=== PATIENT | female | born 1960 | race Caucasian/White ===

== ENCOUNTER → 2017-02-18 | Outpatient (CLI) | payer OTHER ==
--- NOTE | 2017-02-18 11:13 | US ---
EXAMINATION: Right upper quadrant ultrasound HISTORY: Hepatitis C COMPARISON: None TECHNIQUE: Grayscale and color Doppler images obtained. FINDINGS: Pancreas is not well visualized. Liver is coarse in echotexture with a nodular contour. No focal hepatic mass identified. There is a moderate amount of abdominal ascites. The gallbladder wal l thickness is normal. No pericholecystic fluid or shadowing gallstones. Common bile duct measures 3 mm. Right kidney measures 10.5 cm [id number] without evidence of hydronephrosis. IMPRESSION: 1. Coarse nodular liver consistent with cirrhosis. 2. Moderate abdominal ascites.
== END ==
LOC: MW.US 09:49
PROVIDERS: ATTEND Internal Medicine Gastroenterology
DX: B19.20 Unspecified viral hepatitis C without hepatic coma (principal); K71.7 Toxic liver disease with fibrosis and cirrhosis of liver; R18.8 Other ascites
CPT/HCPCS: 76705; 76705-26

== ENCOUNTER → 2017-02-28 | Outpatient (CLI) | payer OTHER ==
--- NOTE | 2017-02-28 14:21 | US ---
EXAMINATION: Limited abdominal ultrasound HISTORY: Ascites, patient was here for a paracentesis. COMPARISON: 02/18/2017 TECHNIQUE: Grayscale images obtained of the abdomen. FINDINGS: There is no significant ascitic fluid noted on today's examination. Images were obtained i n all 4 quadrants. No abnormalities otherwise demonstrated. IMPRESSION: No significant ascites identified on today's examination. Paracentesis was not performed .
== END ==
LOC: MW.US 11:09
PROVIDERS: ATTEND Family Medicine
DX: R18.8 Other ascites (principal)
CPT/HCPCS: 76705; 76705-26

== ENCOUNTER 2018-01-08 10:44 | Emergency (ER) | payer OTHER ==
[2018-01-08] MEDS ORDERED: Ketorolac 60 MG/2 ML SDV IM ONE (11:36)
[2018-01-08] MEDS ORDERED: Cyclobenzaprine 10 MG Tab PO ONE (11:36)
--- NOTE | 2018-01-08 11:37 | EDM.PDOC ---
ED HPI GENERAL MEDICAL PROBLEM - General Chief Complaint: Back Pain or Injury Stated Complaint: UNABLE TO STAND NOR WALK Time Seen by Provider: 01/08/18 10:55 Source of Information: Reports: Patient History Limitations: Reports: No Limitations - History of Present Illness INITIAL COMMENTS - FREE TEXT/NARRATIVE: History of present illness: []Patient twisted her right back approximately a week and half ago while trying to help her walk. She went to go see a chiropractor but slipped on the ice in the parking lot and was unable to be seen. She was assisted by ambulance at that time but refused to be transported to the emergency room. She has been at home for 5 days dealing with the pain. Patient came into the ED today with the assistance of her and was able to walk from the wheelchair to the bed. Patient denies any numbness or chilling. Review of systems: As per history of present illness and below otherwise all systems reviewed and negative. Past medical history: As per history of present illness and as reviewed below otherwise noncontributory. Surgical history: As per history of present illness and as reviewed below otherwise noncontributory. Social history: No reported history of drug or alcohol abuse. Family history: As per history of present illness and as reviewed below otherwise noncontributory. Physical exam: General: Well developed, well nourished in NAD HEENT: Atraumatic, normocephalic, pupils reactive, negative for conjunctival pallor or scleral icterus, mucous membranes moist, throat clear, neck supple, nontender, trachea midline. Lungs: Clear to auscultation, breath sounds equal bilaterally, chest nontender. Heart: S1S2, regular, negative for clicks, rubs, or JVD. Abdomen: Soft, nondistended, nontender. Negative for masses or hepatosplenomegaly. Negative for costovertebral tenderness. Pelvis: Stable nontender. Genitourinary: Deferred. Rectal: Deferred. Extremities: Atraumatic, negative for cords or calf pain. Neurovascular unremarkable. Neuro: Awake, alert, oriented. Cranial nerves II through XII unremarkable. Cerebellum unremarkable. Motor and sensory unremarkable throughout. Exam nonfocal. Diagnostics: []X-ray showing compression fractures of L1, L2 and T9 unknown age Therapeutics: []Toradol Flexeril given the ED Impression: []Musculoskeletal pain Compression fractures L1 and L2 likely old and not in the area of her current pain Plan: []Tramadol and Flexeril for pain follow-up PMD requests physical therapy ice back is much as possible.. Definitive disposition and diagnosis as appropriate pending reevaluation and review of above. Lower Back Pain Score (Numeric/FACES): 10 - Related Data Allergies Allergy/AdvReac Type Severity Reaction Status Date / Time hydrocodone Allergy Itching Verified 01/12/17 12:41 Home Meds: Home Meds Amitriptyline [Elavil] 1 tab PO DAILY 01/12/17 [History] Amoxicillin 875 mg PO BID #14 tablet 01/12/17 [Rx] Eszopiclone 1 tab PO DAILY 01/12/17 [History] Folic Acid 1 tab PO DAILY 01/12/17 [History] Furosemide 1 tab PO DAILY 01/12/17 [History] Lactulose [Chronulac] 1 dose PO TID 01/12/17 [History] Omeprazole 1 cap PO DAILY 01/12/17 [History] Orphenadrine [Norflex] 1 tab PO BID 01/12/17 [History] Potassium Chloride 1 tab PO DAILY 01/12/17 [History] Rifaximin [Xifaxan] 1 tab PO BID 01/12/17 [History] Spironolactone [Aldactone] 1 tab PO DAILY 01/12/17 [History] hydrOXYzine HCl [Atarax] 1 tab PO DAILY 01/12/17 [History] Cyclobenzaprine [Flexeril] 10 mg PO BID PRN #16 tab 01/08/18 [Rx] traMADol HCl [Tramadol HCl] 50 mg PO Q6H PRN #16 tablet 01/08/18 [Rx] Past Medical History HEENT History: Reports: Other (See Below) Other HEENT History: laser surgery with implants both eyes for decreased vision Cardiovascular History: Reports: Other (See Below) Other Cardiovascular History: takes lasix for fluid retention due to cirrhosis 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 Immunologic History: Reports: Other (See Below) Other Immunologic History: hepatitis C - Infectious Disease History Infectious Disease History: Reports: Hepatitis C - Past Surgical History Musculoskeletal Surgical History: Reports: Other (See Below) Social & Family History - Family History Family Medical History: Noncontributory - Tobacco Use Smoking Status *Q: Current Every Day Smoker Years of Tobacco use: 20 Packs/Tins Daily: 0.5 Used Tobacco, but Quit: No Second Hand Smoke Exposure: Yes - Caffeine Use Caffeine Use: Reports: Coffee - Recreational Drug Use Recreational Drug Use: No ED ROS GENERAL - Review of Systems Review Of Systems: See Below (See history of present illness) ED EXAM,LOWER BACK PAIN/INJURY - Physical Exam Exam: See Below (See history of present illness) Course - Vital Signs Last Recorded V/S: Last Vital Signs Temp 97.9 F 01/08/18 11:44 Pulse 92 01/08/18 11:44 Resp 18 01/08/18 11:44 BP 90/58 L 01/08/18 11:44 Pulse Ox 93 L 01/08/18 11:44 - Orders/Labs/Meds Meds: Medications Discontinued Medications Generic Name Dose Route Start Last Admin Trade Name Freq PRN Reason Stop Dose Admin Cyclobenzaprine HCl 10 mg 01/08/18 11:36 01/08/18 11:57 Flexeril PO 01/08/18 11:37 10 mg ONETIME ONE Administration Ketorolac Tromethamine 60 mg 01/08/18 11:36 01/08/18 11:50 Toradol IM 01/08/18 11:37 60 mg ONETIME ONE Administration Tramadol HCl 50 mg 01/08/18 13:08 Ultram PO 01/08/18 13:09 ONETIME ONE Departure - Departure Time of Disposition: 13:08 Disposition: Home, Self-Care 01 Condition: Good Clinical Impression: Lumbar muscle pain - Discharge Information Prescriptions: Cyclobenzaprine [Flexeril] 10 mg PO BID PRN #16 tab PRN Reason: Pain traMADol HCl [Tramadol HCl] 50 mg PO Q6H PRN #16 tablet PRN Reason: Pain Referrals: Nikolay Holloway MD [Primary Care Provider] - Forms: ED Department Discharge Additional Instructions: The following information is given to patients seen in the emergency department who are being discharged to home. This information is to outline your options for follow-up care. We provide all patients seen in our emergency department with a follow-up referral. The need for follow-up, as well as the timing and circumstances, are variable depending upon the specifics of your emergency department visit. If you don't have a primary care physician on staff, we will provide you with a referral. We always advise you to contact your personal physician following an emergency department visit to inform them of the circumstance of the visit and for follow-up with them and/or the need for any referrals to a consulting specialist. The emergency department will also refer you to a specialist when appropriate. This referral assures that you have the opportunity for follow-up care with a specialist. All of these measure are taken in an effort to provide you with optimal care, which includes your follow-up. Under all circumstances we always encourage you to contact your private physician who remains a resource for coordinating your care. When calling for follow-up care, please make the office aware that this follow-up is from your recent emergency room visit. If for any reason you are refused follow-up, please contact the [facility] Emergency Department at and asked to speak to the emergency department charge nurse. Tramadol, ibuprofen for pain ice back is much as possible, follow-up with primary care request physical therapy. [facility] [address] [place] [id number]
--- NOTE | 2018-01-08 12:47 | CR ---
EXAMINATION: Lumbar spine HISTORY: Pain COMPARISON: None TECHNIQUE: AP and lateral views FINDINGS: The lumbar spinal alignment is grossly unremarkable. There is a mild compression deformity at L1 and a moderate compression deformity at L2. Mild retropulsion of the superior endplate at L2. M ild to moderate compression deformity also noted at T9. Osseous structures appear osteopenic. SI join ts are symmetric. Mild vascular calcifications. IMPRESSION: 1. Age-indeterminate compression deformities noted at L1 and L2. 2. Probable chronic compression deformity at T9.
[2018-01-08] MEDS ORDERED: traMADol 50 MG Tab PO ONE (13:08)
[2018-01-08 13:53] VITALS: BP 112/46
== END 2018-01-08 13:45 | disposition home or self-care (01) ==
LOC: MW.ED 10:44
DX: M54.5 Low back pain (principal); M79.1 Myalgia; M48.56XA Collapsed vertebra, not elsewhere classified, lumbar region, initial encounter for fracture; F32.9 Major depressive disorder, single episode, unspecified; F17.210 Nicotine dependence, cigarettes, uncomplicated; Z79.899 Other long term (current) drug therapy; Z88.5 Allergy status to narcotic agent
CPT/HCPCS: 72100; 96372; 99283; A9270; J1885

== ENCOUNTER 2018-05-03 19:17 | Inpatient (IN) | payer OTHER ==
[2018-05-03] MEDS ORDERED: Sodium Chloride 0.9% 1,000 ML IV ONE (19:22)
[2018-05-03] MEDS ORDERED: Ondansetron 4 MG/2 ML SDV IVPUSH ONE (19:22)
[2018-05-03] MEDS ORDERED: Ketorolac 30 MG/ML SDV IVPUSH ONE (19:22)
--- NOTE | 2018-05-03 20:29 | EDM.PDOC ---
ED HPI GENERAL MEDICAL PROBLEM - General Chief Complaint: Abdominal Pain Stated Complaint: ABDOMINAL PAIN Time Seen by Provider: 05/03/18 19:22 Source of Information: Reports: Patient History Limitations: Reports: No Limitations - History of Present Illness INITIAL COMMENTS - FREE TEXT/NARRATIVE: HISTORY AND PHYSICAL: History of present illness: Patient is a 57-year-old female who presents to the emergency room with complaints of abdominal pain, nausea, vomiting and constipation. She states she has not had a bowel movement in the last 3 days and does note a hernia, which is reducible. She has generalized abdominal pain but is worse in the right lower quadrant with palpation. Nausea and vomiting and unable to keep food or fluids down. History of Cirrhosis (Stage IV), Hepatitis C (currently in remission, had treatment), depression. She states that her last alcoholic drink was several years ago. She did have her belly tapped for fluid due to ascites approximately 4 years ago. Review of systems: As per history of present illness and below otherwise all systems reviewed and negative. Past medical history: As per history of present illness and as reviewed below otherwise noncontributory. Surgical history: As per history of present illness and as reviewed below otherwise noncontributory. Social history: No reported history of drug or alcohol abuse. Family history: As per history of present illness and as reviewed below otherwise noncontributory. Physical exam: General: Well-developed and well-nourished 57-year-old female. Alert and oriented. Nontoxic appearing and in no acute distress. HEENT: Atraumatic, normocephalic, pupils equal and reactive bilaterally, negative for conjunctival pallor, mucous membranes moist, throat clear, neck supple, nontender, trachea midline. No drooling or trismus noted. No meningeal signs Lungs: Clear to auscultation, breath sounds equal bilaterally, chest nontender. Heart: S1S2, regular rate and rhythm without overt murmur Abdomen: Soft, obese, right upper and lower quadrant tenderness without rebound( . Appears to have a small epigastric hernia, which is reducible. Negative for masses. Negative for costovertebral tenderness. Pelvis: Stable nontender. Genitourinary: Deferred. Rectal: Deferred. Skin: Jaunice appearing. Otherwise intact, warm, dry. No lesions or rashes noted. Extremities: Atraumatic, negative for cords or calf pain. Neurovascular unremarkable. Neuro: Awake, alert, oriented. Cranial nerves II through XII unremarkable. Cerebellum unremarkable. Motor and sensory unremarkable throughout. Exam nonfocal. Notes: Radiology is requesting that the CT of the abdomen without contrast as her GFR is the low 40s. Potassium 3.1; will give K-Dur. CT shows shrunken cirrhotic liver, moderate amount of intra-abdominal ascites, small right pleural effusion. No evidence of bowel obstruction. Multiple compression fractures age indeterminate. Dr Cook was consulted on this case; agreeable to keeping this patient for observation. Requesting an ultrasound of the right upper quadrant. Diagnostics: CBC, CMP, UA, amylase, lipase, CT abdomen and pelvis, RUQ ultrasound Therapeutics: Normal Saline, Toradol, Zofran, KDur Impression: Abdominal pain Hypokalemia Ascites Plan: Observation admission Definitive disposition and diagnosis as appropriate pending reevaluation and review of above. Onset: Today Location: Reports: Abdomen Abdomen Pain Score (Numeric/FACES): 10 - Related Data Allergies Allergy/AdvReac Type Severity Reaction Status Date / Time hydrocodone Allergy Itching Verified 01/12/17 12:41 Home Meds: Home Meds Amitriptyline [Elavil] 1 tab PO DAILY 01/12/17 [History] Eszopiclone 1 tab PO DAILY 01/12/17 [History] Folic Acid 1 tab PO DAILY 01/12/17 [History] Furosemide 1 tab PO DAILY 01/12/17 [History] Lactulose [Chronulac] 1 dose PO TID 01/12/17 [History] Omeprazole 1 cap PO DAILY 01/12/17 [History] Orphenadrine [Norflex] 1 tab PO BID 01/12/17 [History] Potassium Chloride 1 tab PO DAILY 01/12/17 [History] Rifaximin [Xifaxan] 1 tab PO BID 01/12/17 [History] Spironolactone [Aldactone] 1 tab PO DAILY 01/12/17 [History] hydrOXYzine HCl [Atarax] 1 tab PO DAILY 01/12/17 [History] Benzonatate 100 mg 05/03/18 [History] Past Medical History HEENT History: Reports: Other (See Below) Other HEENT History: laser surgery with implants both eyes for decreased vision Cardiovascular History: Reports: Other (See Below) Other Cardiovascular History: takes lasix for fluid retention due to cirrhosis Gastrointestinal History: 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 Immunologic History: Reports: Other (See Below) Other Immunologic History: hepatitis C - Infectious Disease History Infectious Disease History: Reports: Hepatitis C - Past Surgical History Musculoskeletal Surgical History: Reports: Other (See Below) Social & Family History - Family History Family Medical History: Noncontributory - Tobacco Use Smoking Status *Q: Former Smoker Used Tobacco, but Quit: Yes Month/Year Tobacco Last Used: 03/2017 - Caffeine Use Caffeine Use: Reports: Soda, Tea - Recreational Drug Use Recreational Drug Use: No ED ROS GENERAL - Review of Systems Review Of Systems: ROS reveals no pertinent complaints other than HPI. ED EXAM, GI/ABD - Physical Exam Exam: See Below (See dictation) Course - Vital Signs Last Recorded V/S: Last Vital Signs Temp 98.2 F 05/03/18 19:29 Pulse 80 05/03/18 21:10 Resp 18 05/03/18 19:29 BP 124/56 L 05/03/18 21:10 Pulse Ox 97 05/03/18 21:02 - Orders/Labs/Meds Orders: Active Orders 24 hr Category Date Time Status Admission Status [Patient Status] [ADT] Stat ADT 05/03/18 21:21 Ordered Abdomen Ltd [US] Stat Exams 05/03/18 21:21 Ordered Abdomen Pelvis wo Cont [CT] Stat Exams 05/03/18 19:22 Taken INR,PT,PROTHROMBIN TIME [COAG] Stat Lab 05/03/18 21:21 Ordered UA W/MICROSCOPIC [URIN] Stat Lab 05/03/18 19:22 Ordered Labs: Laboratory Tests 05/03/18 05/03/18 Range/Units 19:31 19:31 WBC 8.72 (4.0-11.0) K/uL RBC 3.72 L (4.30-5.90) M/uL Hgb 12.9 (12.0-16.0) g/dL Hct 37.6 (36.0-46.0) % MCV 101.1 H (80.0-98.0) fL MCH 34.7 H (27.0-32.0) pg MCHC 34.3 (31.0-37.0) g/dL RDW Std Deviation 60.0 (28.0-62.0) fl RDW Coeff of Shin 16 H (11.0-15.0) % Plt Count 91 L (150-400) K/uL MPV 9.60 (7.40-12.00) fL Neut % (Auto) 46.4 L (48.0-80.0) % Lymph % (Auto) 32.2 (16.0-40.0) % [place] % (Auto) 12.4 (0.0-15.0) % Eos % (Auto) 7.9 H (0.0-7.0) % Baso % (Auto) 1.1 (0.0-1.5) % Neut # (Auto) 4.0 (1.4-5.7) K/uL Lymph # (Auto) 2.8 H (0.6-2.4) K/uL [place] # (Auto) 1.1 H (0.0-0.8) K/uL Eos # (Auto) 0.7 (0.0-0.7) K/uL Baso # (Auto) 0.1 (0.0-0.1) K/uL Nucleated RBC % 0.0 /100WBC Nucleated RBCs # 0 K/uL Sodium 139 (136-145) mmol/L Potassium 3.1 L (3.5-5.1) mmol/L Chloride 105 (98-107) mmol/L Carbon Dioxide 27.8 (21.0-32.0) mmol/L BUN 13 (7.0-18.0) mg/dL Creatinine 1.3 H (0.6-1.0) mg/dL Est Cr Clr Drug Dosing 49.90 mL/min Estimated GFR (MDRD) 42.2 ml/min Glucose 75 (74-106) mg/dL Calcium 8.4 L (8.5-10.1) mg/dL Total Bilirubin 6.2 H (0.2-1.0) mg/dL AST 73 H (15-37) IU/L ALT 37 (14-63) IU/L Alkaline Phosphatase 169 H (46-116) U/L Total Protein 6.5 (6.4-8.2) g/dL Albumin 2.5 L (3.4-5.0) g/dL Globulin 4.0 H (2.0-3.5) g/dL Albumin/Globulin Ratio 0.6 L (1.3-2.8) Amylase 32 (25-115) U/L Lipase 110 (73-393) U/L Meds: Medications Discontinued Medications Generic Name Dose Route Start Last Admin Trade Name Julita PRN Reason Stop Dose Admin Sodium Chloride 1,000 mls @ 999 mls/hr 05/03/18 19:22 05/03/18 19:28 Normal Saline IV 05/03/18 20:22 999 mls/hr STAT ONE Administration Ketorolac Tromethamine 30 mg 05/03/18 19:22 05/03/18 19:28 Toradol IVPUSH 05/03/18 19:23 30 mg ONETIME ONE Administration Ondansetron HCl 4 mg 05/03/18 19:22 05/03/18 19:29 Zofran IVPUSH 05/03/18 19:23 4 mg ONETIME ONE Administration Potassium Chloride 40 meq 05/03/18 20:54 05/03/18 21:08 Klor-Con M20 PO 05/03/18 20:55 40 meq ONETIME ONE Administration Departure - Departure Time of Disposition: 21:27 Disposition: Refer to Observation Clinical Impression: Hypokalemia Ascites Qualifiers: Ascites type: due to alcoholic cirrhosis Qualified Code(s): K70.31 - Alcoholic cirrhosis of liver with ascites Abdominal pain Qualifiers: Abdominal location: right upper quadrant Qualified Code(s): R10.11 - Right upper quadrant pain - Discharge Information Referrals: PCP,None [Primary Care Provider] - Forms: ED Department Discharge - My Orders Last 24 Hours: My Active Orders 05/03/18 19:22 Abdomen Pelvis wo Cont [CT] Stat UA W/MICROSCOPIC [URIN] Stat 05/03/18 21:21 Admission Status [Patient Status] [ADT] Stat Abdomen Ltd [US] Stat INR,PT,PROTHROMBIN TIME [COAG] Stat - Assessment/Plan Last 24 Hours: My Active Orders 05/03/18 19:22 Abdomen Pelvis wo Cont [CT] Stat UA W/MICROSCOPIC [URIN] Stat 05/03/18 21:21 Admission Status [Patient Status] [ADT] Stat Abdomen Ltd [US] Stat INR,PT,PROTHROMBIN TIME [COAG] Stat
[2018-05-03] MEDS ORDERED: Potassium Chloride 20 MEQ Tab.ER PO ONE (20:54)
[2018-05-04] MEDS ORDERED: Ondansetron 4 MG/2 ML SDV IVPUSH PRN (00:12)
[2018-05-04] MEDS ORDERED: Lactulose Soln 10 GM/15 ML 15 ML UD Cup PO SCH ×3 (00:15→14:00)
[2018-05-04] MEDS: Lactulose Soln 10 GM/15 ML 15 ML UD Cup PO SCH ×5 (01:16→18:40)
[2018-05-04] MEDS: Omeprazole 20 MG Cap.CR PO SCH (06:40)
[2018-05-04] MEDS: traMADol 50 MG Tab PO PRN ×2 (06:43→13:31)
--- NOTE | 2018-05-04 08:45 | PCM.HP ---
H&P History of Present Illness - General Date of Service: 05/04/18 Admit Problem/Dx: Admission Diagnosis/Problem Admission Diagnosis/Problem Ascites History Limitations: Reports: Altered Mental Status - History of Present Illness Initial Comments - Free Text/Narative: 57 yo fm with history of Liver Cirrhosis and HCV apparently in remission is admitted for Hepatic Encephalopathy, Subacute Kidney Injury and Hypokalemia. Due to her altered mental status patient is unable to provide any history. Abdomen Pain Score (Numeric/FACES): 7 - Related Data Allergies/Adverse Reactions: Allergies Allergy/AdvReac Type Severity Reaction Status Date / Time hydrocodone Allergy Itching Verified 01/12/17 12:41 Home Medications: Home Meds Amitriptyline [Elavil] 1 tab PO DAILY 01/12/17 [History] Eszopiclone 1 tab PO DAILY 01/12/17 [History] Folic Acid 1 tab PO DAILY 01/12/17 [History] Furosemide 1 tab PO DAILY 01/12/17 [History] Lactulose [Chronulac] 1 dose PO TID 01/12/17 [History] Omeprazole 1 cap PO DAILY 01/12/17 [History] Orphenadrine [Norflex] 1 tab PO BID 01/12/17 [History] Potassium Chloride 1 tab PO DAILY 01/12/17 [History] Rifaximin [Xifaxan] 1 tab PO BID 01/12/17 [History] Spironolactone [Aldactone] 1 tab PO DAILY 01/12/17 [History] hydrOXYzine HCl [Atarax] 1 tab PO DAILY 01/12/17 [History] Benzonatate 100 mg 05/03/18 [History] Albuterol [Ventolin HFA] 90 mcg INH Q4HR PRN 05/04/18 [History] Past Medical History HEENT History: Reports: Other (See Below) Other HEENT History: laser surgery with implants both eyes for decreased vision Cardiovascular History: Reports: Other (See Below) Other Cardiovascular History: takes lasix for fluid retention due to cirrhosis Respiratory History: Reports: None Gastrointestinal History: Reports: Cirrhosis, Hepatitis, Jaundice Genitourinary History: Reports: None 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 Hematologic History: Reports: Folic Acid Immunologic History: Reports: Other (See Below) Other Immunologic History: hepatitis C Oncologic (Cancer) History: Reports: None Dermatologic History: Reports: None - Infectious Disease History Infectious Disease History: Reports: Hepatitis C - Past Surgical History GI Surgical History: Reports: Abdominal paracentesis Neurological Surgical History: Reports: None Musculoskeletal Surgical History: Reports: Other (See Below) Other Musculoskeletal Surgeries/Procedures:: titanium on left shoulder Social & Family History - Family History Family Medical History: Noncontributory - Tobacco Use Smoking Status *Q: Former Smoker Used Tobacco, but Quit: Yes Month/Year Tobacco Last Used: 03/2018 Second Hand Smoke Exposure: No - Caffeine Use Caffeine Use: Reports: None - Recreational Drug Use Recreational Drug Use: No H&P Review of Systems - Review of Systems: Review Of Systems: Unable To Obtain Exam - Exam Exam: See Below - Vital Signs Vital Signs: Last Vital Signs Temp 36.5 C 05/04/18 03:59 Pulse 88 05/04/18 03:59 Resp 18 05/04/18 03:59 BP 126/76 05/04/18 03:59 Pulse Ox 95 05/04/18 03:59 Weight: 98.5 kg - Exam General: No: Alert, Oriented HEENT: Scleral Icterus Neck: Supple Lungs: Clear to Auscultation, Normal Respiratory Effort Cardiovascular: Regular Rate, Regular Rhythm GI/Abdominal Exam: Distended, Tender, Hernia Extremities: Other (BL asterixis ) Neuro Extensive - Mental Status: Disorientation to Person, Inattentive. No: Normal Cognition - Patient Data Lab Results Last 24 hrs: Laboratory Results - last 24 hr 05/03/18 05/03/18 05/03/18 Range/Units 19:31 19:31 19:31 WBC 8.72 (4.0-11.0) K/uL RBC 3.72 L (4.30-5.90) M/uL Hgb 12.9 (12.0-16.0) g/dL Hct 37.6 (36.0-46.0) % MCV 101.1 H (80.0-98.0) fL MCH 34.7 H (27.0-32.0) pg MCHC 34.3 (31.0-37.0) g/dL RDW Std Deviation 60.0 (28.0-62.0) fl RDW Coeff of Shin 16 H (11.0-15.0) % Plt Count 91 L (150-400) K/uL MPV 9.60 (7.40-12.00) fL Neut % (Auto) 46.4 L (48.0-80.0) % Lymph % (Auto) 32.2 (16.0-40.0) % Rincon % (Auto) 12.4 (0.0-15.0) % Eos % (Auto) 7.9 H (0.0-7.0) % Baso % (Auto) 1.1 (0.0-1.5) % Neut # (Auto) 4.0 (1.4-5.7) K/uL Lymph # (Auto) 2.8 H (0.6-2.4) K/uL Rincon # (Auto) 1.1 H (0.0-0.8) K/uL Eos # (Auto) 0.7 (0.0-0.7) K/uL Baso # (Auto) 0.1 (0.0-0.1) K/uL Nucleated RBC % 0.0 /100WBC Nucleated RBCs # 0 K/uL INR 2.01 Sodium 139 (136-145) mmol/L Potassium 3.1 L (3.5-5.1) mmol/L Chloride 105 (98-107) mmol/L Carbon Dioxide 27.8 (21.0-32.0) mmol/L BUN 13 (7.0-18.0) mg/dL Creatinine 1.3 H (0.6-1.0) mg/dL Est Cr Clr Drug Dosing 49.90 mL/min Estimated GFR (MDRD) 42.2 ml/min Glucose 75 (74-106) mg/dL Calcium 8.4 L (8.5-10.1) mg/dL Total Bilirubin 6.2 H (0.2-1.0) mg/dL AST 73 H (15-37) IU/L ALT 37 (14-63) IU/L Alkaline Phosphatase 169 H (46-116) U/L Total Protein 6.5 (6.4-8.2) g/dL Albumin 2.5 L (3.4-5.0) g/dL Globulin 4.0 H (2.0-3.5) g/dL Albumin/Globulin Ratio 0.6 L (1.3-2.8) Amylase 32 (25-115) U/L Lipase 110 (73-393) U/L Urine Color Urine Appearance Urine pH (5.0-8.0) Ur Specific Hancock (1.001-1.035) Urine Protein (NEGATIVE) mg/dL Urine Glucose (UA) (NEGATIVE) mg/dL Urine Ketones (NEGATIVE) mg/dL Urine Occult Blood (NEGATIVE) Urine Nitrite (NEGATIVE) Urine Bilirubin (NEGATIVE) Urine Ictotest Urine Urobilinogen (<2.0) EU/dL Ur Leukocyte Esterase (NEGATIVE) Urine RBC (0-2/HPF) Urine WBC (0-5/HPF) Ur Epithelial Cells (NONE-FEW) Urine Bacteria (NEGATIVE) 05/04/18 05/04/18 05/04/18 Range/Units 05:18 05:18 05:55 WBC 8.19 (4.0-11.0) K/uL RBC 3.55 L (4.30-5.90) M/uL Hgb 12.3 (12.0-16.0) g/dL Hct 36.3 (36.0-46.0) % MCV 102.3 H (80.0-98.0) fL MCH 34.6 H (27.0-32.0) pg MCHC 33.9 (31.0-37.0) g/dL RDW Std Deviation 61.2 (28.0-62.0) fl RDW Coeff of Shin 17 H (11.0-15.0) % Plt Count 82 L (150-400) K/uL MPV 9.70 (7.40-12.00) fL Neut % (Auto) (48.0-80.0) % Lymph % (Auto) (16.0-40.0) % Rincon % (Auto) (0.0-15.0) % Eos % (Auto) (0.0-7.0) % Baso % (Auto) (0.0-1.5) % Neut # (Auto) (1.4-5.7) K/uL Lymph # (Auto) (0.6-2.4) K/uL Rincon # (Auto) (0.0-0.8) K/uL Eos # (Auto) (0.0-0.7) K/uL Baso # (Auto) (0.0-0.1) K/uL Nucleated RBC % 0.0 /100WBC Nucleated RBCs # 0 K/uL INR Sodium 142 (136-145) mmol/L Potassium 4.1 (3.5-5.1) mmol/L Chloride 108 H (98-107) mmol/L Carbon Dioxide 29.6 (21.0-32.0) mmol/L BUN 15 (7.0-18.0) mg/dL Creatinine 1.3 H (0.6-1.0) mg/dL Est Cr Clr Drug Dosing 49.90 mL/min Estimated GFR (MDRD) 42.2 ml/min Glucose 67 L (74-106) mg/dL Calcium 8.4 L (8.5-10.1) mg/dL Total Bilirubin 6.3 H (0.2-1.0) mg/dL AST 68 H (15-37) IU/L ALT 35 (14-63) IU/L Alkaline Phosphatase 151 H (46-116) U/L Total Protein 5.9 L (6.4-8.2) g/dL Albumin 2.3 L (3.4-5.0) g/dL Globulin 3.6 H (2.0-3.5) g/dL Albumin/Globulin Ratio 0.6 L (1.3-2.8) Amylase (25-115) U/L Lipase (73-393) U/L Urine Color DARK YELLOW Urine Appearance CLEAR Urine pH 6.0 (5.0-8.0) Ur Specific Hancock 1.015 (1.001-1.035) Urine Protein NEGATIVE (NEGATIVE) mg/dL Urine Glucose (UA) NEGATIVE (NEGATIVE) mg/dL Urine Ketones NEGATIVE (NEGATIVE) mg/dL Urine Occult Blood TRACE-INTACT (NEGATIVE) Urine Nitrite NEGATIVE (NEGATIVE) Urine Bilirubin SMALL H (NEGATIVE) Urine Ictotest NEGATIVE Urine Urobilinogen 2.0 H (<2.0) EU/dL Ur Leukocyte Esterase NEGATIVE (NEGATIVE) Urine RBC 0-4 (0-2/HPF) Urine WBC 0-2 (0-5/HPF) Ur Epithelial Cells RARE (NONE-FEW) Urine Bacteria RARE (NEGATIVE) Result Diagrams: 05/04/18 05:18 05/04/18 05:18 Problem List Initiated/Reviewed/Updated: Yes Orders Last 24hrs: Active Orders 24 hr Category Date Time Status Admission Status [Patient Status] [ADT] Stat ADT 05/03/18 21:21 Active Insert Urinary Catheter [OM.PC] Q24H Care 05/04/18 07:00 Ordered Oxygen Therapy [RC] PRN Care 05/03/18 23:59 Active Urinary Catheter Assessment [RC] ASDIRECTED Care 05/04/18 06:53 Active VTE/DVT Education [RC] PER UNIT ROUTINE Care 05/03/18 23:59 Active Vital Signs [RC] Q4H Care 05/03/18 23:59 Active Regular Diet [DIET] Diet 05/04/18 Breakfast Active Abdomen Ltd [US] Stat Exams 05/03/18 21:21 Taken Abdomen Pelvis wo Cont [CT] Stat Exams 05/03/18 19:22 Taken UA W/MICROSCOPIC [URIN] Stat Lab 05/04/18 05:55 Ordered Folic Acid Med 05/04/18 09:00 Active 1 mg PO DAILY Lactulose [Chronulac] Med 05/04/18 08:45 Ordered 10 gm PO Q4H Omeprazole Med 05/04/18 07:30 Active 20 mg PO ACBREAKFAST Ondansetron [Zofran] Med 05/04/18 00:12 Active 4 mg IVPUSH Q4H PRN Rifaximin Med 05/04/18 09:00 Active 1 tab PO BID Spironolactone [Aldactone] Med 05/04/18 09:00 Active 100 mg PO DAILY traMADol [Ultram] Med 05/04/18 00:11 Active 50 mg PO Q4H PRN Sequential Compression Device [OM.PC] Per Unit Routine Oth 05/03/18 23:59 Ordered Medication Orders Folic Acid (Folic Acid) 1 mg PO DAILY VINCENT Lactulose (Chronulac) 10 gm PO Q4H VINCENT Non-Formulary Medication (Rifaximin) 1 tab PO BID VINCENT Omeprazole (Omeprazole) 20 mg PO ACBREAKFAST VINCENT Last Admin: 05/04/18 06:40 Dose: 20 mg Ondansetron HCl (Zofran) 4 mg IVPUSH Q4H PRN PRN Reason: Nausea/Vomiting Spironolactone (Aldactone) 100 mg PO DAILY VINCENT Tramadol HCl (Ultram) 50 mg PO Q4H PRN PRN Reason: Pain Last Admin: 05/04/18 06:43 Dose: 50 mg Assessment/Plan Comment:: #Liver Cirrhosis, stage 4 as per records #Hx HCV, in remission as per records #Elevated INR, 2.01 #Hypoalbuminemia, 2.3 #Elevated AST, 68 #elevated Alk Phos, 151 -as per records patient with stage 4 cirrhosis and HCV in remission -CT Abdomen-pelvis reveals shrunken cirrhotic liver and moderate intra- abdominal ascites -US RUQ reveals Micronodular cirrhosis and perihepatic ascites -contacted Dr. Sheridan ID and patient has never been seen, she last saw GI Dr. Brooks May 2017, records currently unavailable Plan: -obtain HCV RNA -continue monitoring and obtain records #Hepatic Encephalopathy -likely secondary to non-adherence to treatment -as per records home meds include Rifaximin 1 tab BID & Lactulose 1 dose TID -patient currently with altered mental status, states she does not take meds at home, unclear accuracy of statements Plan: -obtain ammonia -resume Rifaximin 1 tab BID -resume Lactulose 10 mg PO Q4H, hold for over 3 bm's per day #Ascites -seen on Ct Abdomen and RUQ US -discussed with in house radiology who notes presence of enough ascites fluid to justify paracentesis for diagnostic purposes but likely no/low therapeutic benefit Plan -consult Radiology for Paracentesis to r/o SBP - Radiology states patients tap may be done today with current INR but if any delay then rec's vitamin K -peritoneal fluid analysis #Thrombocytopenia, 82K -may be secondary to splenomegaly from Liver cirrhosis -no signs/symptoms of bleeding -continue to monitor #Multiple compression fractures, age indeterminate -seen on CT -continue to monitor
[2018-05-04] MEDS: RIFAXIMIN PO SCH (09:03)
[2018-05-04] MEDS: Spironolactone 25 MG Tab PO SCH (09:05)
[2018-05-04] MEDS: Folic Acid 1 MG Tab PO SCH (09:05)
--- NOTE | 2018-05-04 15:18 | CT ---
EXAM DATE: 05/03/18 PATIENT'S AGE: 57 Patient: GE MONTESINOS Facility: [place], [place] Site . Site : 1960 Study: CT Abdomen/Pelvis W/O [id number]/3/2018 8:38:08 PM Ordering Physician: Doctor Strickland Final Report: HISTORY: Generalized abdominal pain. History of ascites. COMPARISON: None. TECHNIQUE: Axial images were obtained through the abdomen and pelvis without contrast. FINDINGS: The small right pleural effusion. Shrunken cirrhotic liver. The spleen is normal size. There is a moderate amount of intra-abdominal ascites predominantly in the right upper quadrant and in the pelvis. The gallbladder, pancreas, adrenal glands and kidneys are grossly normal without contrast administration. There is a moderate amount of formed stool. No evidence for bowel obstruction. Compression fractures involving L4, L2, and T9. There is retropulsion of fragment mildly narrowing the central canal at the level of L2 . Fractures are age-indeterminate. IMPRESSION: 1. Shrunken cirrhotic liver. 2. Moderate intra-abdominal ascites. 3. Small right pleural effusion. 4. Multiple compression fractures age indeterminate. Please note that all CT scans at this facility use dose modulation, iterative reconstruction, and/or weight-based dosing when appropriate to reduce radiation dose to as low as reasonably achievable. Dictated by Shayy Sifuentes MD @ May 03 2018 8:57PM (Electronic Signature) Report Signed by Proxy. [facility]
--- NOTE | 2018-05-04 15:30 | US ---
EXAM DATE: 05/03/18 PATIENT'S AGE: 57 Patient: GE MONTESINOS Facility: [place], [place] Site . Site : 1960 Study: US Abdomen [id number]/3/2018 10:26:23 PM Ordering Physician: Doctor Strickland Final Report: INDICATION: General abdominal pain for 2 years TECHNIQUE: Ultrasound abdomen limited. Sonographic images of the right upper quadrant were obtained using everett-scale and color Doppler images. COMPARISON: None FINDINGS: Liver: A moderate amount of perihepatic ascites and small right pleural effusion seen. The liver has a nodular capsular contour, consistent with micronodular cirrhosis. No focal liver lesions are identified. Gallbladder: The neck of the gallbladder is not well demonstrated. The gallbladder wall is normal in appearance. No pericholecystic fluid is present. No sonographic Northway sign is present. Common bile duct: 4 mm. The common bile duct is normal in appearance and size. Pancreas: Obscured by bowel gas and cannot be visualized. Right Kidney: 10.3 cm. No hydronephrosis or ureterectasis is seen. Vascular: Proximal abdominal aorta and IVC are normal in caliber. IMPRESSION: 1. A moderate amount of perihepatic ascites and small right pleural effusion seen. 2. The liver has a nodular capsular contour, consistent with micronodular cirrhosis. Dictated by Oscar Campbell MD @ 05/03/2018 10:44:36 PM Dictated by: Oscar Campbell MD @ 05/03/2018 22:45:22 (Electronic Signature) Report Signed by Proxy. IRA[place]
[2018-05-05] MEDS: RIFAXIMIN PO SCH ×3 (01:10→20:01)
[2018-05-05] MEDS: Lactulose Soln 10 GM/15 ML 15 ML UD Cup PO SCH ×7 (01:10→19:47)
[2018-05-05] MEDS: Omeprazole 20 MG Cap.CR PO SCH (06:46)
--- NOTE | 2018-05-05 08:00 | US ---
Ultrasound-guided paracentesis Medical history: Alcoholic hepatitis with cirrhosis and ascites last rule out spontaneous bacterial p eritonitis Procedure: After informed consent was obtained from the patient's patient was [facility] to [facility]. Under ultrasound guidance a pocket of fluid near the liver was located and a 4 Haitian straight catheter was inserted with aspiration of 30 cc of clear yellow fluid. No findings are present to sug gest this was purulent. Material was sent to the laboratory for requested analysis. No no complicatio n ensued Impression: Successful ultrasound-guided paracentesis for diagnosis as described
[2018-05-05] MEDS: Folic Acid 1 MG Tab PO SCH (08:26)
[2018-05-05] MEDS: Spironolactone 25 MG Tab PO SCH (08:26)
--- NOTE | 2018-05-05 08:41 | PCM.PN ---
- General Info Date of Service: 05/05/18 Admission Dx/Problem (Free Text): Admission Diagnosis/Problem Admission Diagnosis/Problem Ascites Subjective Update: Patient had one bowel movement despite scheduled lactulose. Still has fluctuating orientation and BL tremors. - Review of Systems General: Reports: Weakness. Denies: Appetite Pulmonary: Reports: No Symptoms Cardiovascular: Reports: No Symptoms Gastrointestinal: Reports: Abdominal Pain, Decreased Appetite, Nausea, Vomiting , Other Musculoskeletal: Reports: Other (BL tremor) Neurological: Reports: Trouble Speaking Systems Review Comment:: may not be accurate due to acute encephalopathy - Patient Data Vitals - Most Recent: Last Vital Signs Temp 37.1 C 05/05/18 08:00 Pulse 91 05/05/18 08:00 Resp 20 05/05/18 08:00 BP 121/62 05/05/18 08:00 Pulse Ox 92 L 05/05/18 08:00 Weight - Most Recent: 98.5 kg I&O - Last 24 Hours: Intake & Output 05/04/18 05/05/18 05/05/18 22:59 06:59 14:59 Intake Total 380 350 Output Total 0 Balance 380 350 Lab Results Last 24 Hours: Laboratory Results - last 24 hr 05/04/18 05/04/18 05/04/18 Range/Units 12:25 14:23 16:50 WBC (4.0-11.0) K/uL RBC (4.30-5.90) M/uL Hgb (12.0-16.0) g/dL Hct (36.0-46.0) % MCV (80.0-98.0) fL MCH (27.0-32.0) pg MCHC (31.0-37.0) g/dL RDW Std Deviation (28.0-62.0) fl RDW Coeff of Shin (11.0-15.0) % Plt Count (150-400) K/uL MPV (7.40-12.00) fL Add Manual Diff Neutrophils % (Manual) (48.0-80.0) % Lymphocytes % (Manual) (16.0-40.0) % Monocytes % (Manual) (0.0-15.0) % Eosinophils % (Manual) (0.0-7.0) % Basophils % (Manual) (0.0-1.5) % Nucleated RBC % /100WBC Absolute Seg Neuts (1.4-5.7) Lymphocytes # (Manual) (0.6-2.4) Monocytes # (Manual) (0.0-0.8) Eosinophils # (Manual) (0.0-0.7) Basophils # (Manual) (0.0-0.1) Nucleated RBCs # K/uL INR Sodium 140 (136-145) mmol/L Potassium 3.8 (3.5-5.1) mmol/L Chloride 106 (98-107) mmol/L Carbon Dioxide 24.9 (21.0-32.0) mmol/L BUN 14 (7.0-18.0) mg/dL Creatinine 1.3 H (0.6-1.0) mg/dL Est Cr Clr Drug Dosing 49.90 mL/min Estimated GFR (MDRD) 42.2 ml/min Glucose 112 H (74-106) mg/dL Calcium 8.3 L (8.5-10.1) mg/dL Magnesium (1.5-2.0) mg/dL Total Bilirubin 6.6 H (0.2-1.0) mg/dL AST 74 H (15-37) IU/L ALT 37 (14-63) IU/L Alkaline Phosphatase 162 H (46-116) U/L Ammonia 53 (19-54) ug/dL Lactate Dehydrogenase 362 H (81-234) U/L Total Protein 6.2 L (6.4-8.2) g/dL Albumin 2.5 L (3.4-5.0) g/dL Globulin 3.7 H (2.0-3.5) g/dL Albumin/Globulin Ratio 0.7 L (1.3-2.8) Fluid Type PER Fluid Color YELLOW Fluid Appearance CLEAR Fluid WBC 0.17 K/uL Fluid RBC 0.00 M/uL Fluid Mononuclear Cell 76.0 % Fl Polymorphonucl Cell 24.0 % Fluid Glucose 125 mg/dL Fluid Total Protein 0.2 g/dL Fluid Albumin 0.0 g/dL Fluid LDH 31 U/L Fluid Amylase 6 U/L 05/05/18 05/05/18 05/05/18 Range/Units 06:45 06:45 06:45 WBC 7.53 (4.0-11.0) K/uL RBC 3.39 L (4.30-5.90) M/uL Hgb 11.7 L (12.0-16.0) g/dL Hct 34.8 L (36.0-46.0) % MCV 102.7 H (80.0-98.0) fL MCH 34.5 H (27.0-32.0) pg MCHC 33.6 (31.0-37.0) g/dL RDW Std Deviation 62.0 (28.0-62.0) fl RDW Coeff of Shin 17 H (11.0-15.0) % Plt Count 81 L (150-400) K/uL MPV 9.30 (7.40-12.00) fL Add Manual Diff YES Neutrophils % (Manual) 68 (48.0-80.0) % Lymphocytes % (Manual) 12 L (16.0-40.0) % Monocytes % (Manual) 10 (0.0-15.0) % Eosinophils % (Manual) 9 H (0.0-7.0) % Basophils % (Manual) 1 (0.0-1.5) % Nucleated RBC % 0.0 /100WBC Absolute Seg Neuts 5.1 (1.4-5.7) Lymphocytes # (Manual) 0.9 (0.6-2.4) Monocytes # (Manual) 0.8 (0.0-0.8) Eosinophils # (Manual) 0.7 (0.0-0.7) Basophils # (Manual) 0.1 (0.0-0.1) Nucleated RBCs # 0 K/uL INR 2.04 Sodium 141 (136-145) mmol/L Potassium 3.8 (3.5-5.1) mmol/L Chloride 108 H (98-107) mmol/L Carbon Dioxide 27.2 (21.0-32.0) mmol/L BUN 12 (7.0-18.0) mg/dL Creatinine 1.2 H (0.6-1.0) mg/dL Est Cr Clr Drug Dosing 54.05 mL/min Estimated GFR (MDRD) 46.3 ml/min Glucose 78 (74-106) mg/dL Calcium 8.4 L (8.5-10.1) mg/dL Magnesium 1.7 (1.5-2.0) mg/dL Total Bilirubin 6.1 H (0.2-1.0) mg/dL AST 66 H (15-37) IU/L ALT 36 (14-63) IU/L Alkaline Phosphatase 159 H (46-116) U/L Ammonia (19-54) ug/dL Lactate Dehydrogenase (81-234) U/L Total Protein 5.9 L (6.4-8.2) g/dL Albumin 2.3 L (3.4-5.0) g/dL Globulin 3.6 H (2.0-3.5) g/dL Albumin/Globulin Ratio 0.6 L (1.3-2.8) Fluid Type Fluid Color Fluid Appearance Fluid WBC K/uL Fluid RBC M/uL Fluid Mononuclear Cell % Fl Polymorphonucl Cell % Fluid Glucose mg/dL Fluid Total Protein g/dL Fluid Albumin g/dL Fluid LDH U/L Fluid Amylase U/L Vicente Results Last 24 Hours: Microbiology 05/04/18 16:50 Gram Stain - Preliminary Peritoneal Fluid Med Orders - Current: Current Medications Folic Acid (Folic Acid) 1 mg PO DAILY [facility], [facility] Last Admin: 05/05/18 08:26 Dose: 1 mg Lactulose (Chronulac) 20 gm PO Q4H FORMERLY [facility], [facility] Non-Formulary Medication (Rifaximin) 1 tab PO BID [facility]MER[facility], [facility] Last Admin: 05/05/18 08:26 Dose: Not Given Omeprazole (Omeprazole) 20 mg PO ACBREAKFAST FOR[facility], [facility] Last Admin: 05/05/18 06:46 Dose: 20 mg Ondansetron HCl (Zofran) 4 mg IVPUSH Q4H PRN PRN Reason: Nausea/Vomiting Spironolactone (Aldactone) 100 mg PO DAILY [facility], [facility] Last Admin: 05/05/18 08:26 Dose: 100 mg Tramadol HCl (Ultram) 50 mg PO Q4H PRN PRN Reason: Pain Last Admin: 05/04/18 13:31 Dose: 50 mg Discontinued Medications Sodium Chloride (Normal Saline) 1,000 mls @ 999 mls/hr IV STAT ONE Stop: 05/03/18 20:22 Last Admin: 05/03/18 19:28 Dose: 999 mls/hr Ketorolac Tromethamine (Toradol) 30 mg IVPUSH ONETIME ONE Stop: 05/03/18 19:23 Last Admin: 05/03/18 19:28 Dose: 30 mg Lactulose (Chronulac) 10 gm PO TID VINCENT Lactulose (Chronulac) 10 gm PO DAILY [facility] Last Admin: 05/04/18 00:48 Dose: Not Given Lactulose (Chronulac) 10 gm PO TID VINCENT Last Admin: 05/04/18 06:41 Dose: 10 gm Lactulose (Chronulac) 20 gm PO TID VINCENT Lactulose (Chronulac) 10 gm PO Q4H [facility] Last Admin: 05/05/18 08:26 Dose: 10 gm Ondansetron HCl (Zofran) 4 mg IVPUSH ONETIME ONE Stop: 05/03/18 19:23 Last Admin: 05/03/18 19:29 Dose: 4 mg Potassium Chloride (Klor-Con M20) 40 meq PO ONETIME ONE Stop: 05/03/18 20:55 Last Admin: 05/03/18 21:08 Dose: 40 meq - Exam General: Alert, Other. No: Oriented (oriented to person and place but not time) HEENT: Scleral Icterus Neck: Supple Lungs: Clear to Auscultation, Normal Respiratory Effort Cardiovascular: Regular Rate, Regular Rhythm GI/Abdominal Exam: Normal Bowel Sounds, Distended, Tender, Other (umbilical hernia, reducible). No: Guarding, Rigid, Rebound Extremities: Normal Range of Motion, Non-Tender, Other (BL LE edema) Neurological: No: Normal Speech - Problem List Review Problem List Initiated/Reviewed/Updated: Yes - My Orders Last 24 Hours: My Active Orders 05/04/18 11:12 HCV RT-PCR, QUANT (NON-GRAPH) [REF] Routine 05/04/18 13:54 Code Status [Resuscitation Status] Routine 05/04/18 16:50 ALBUMIN,BODY FLUID [BF] Routine AMYLASE,BODY FLUID [BF] Routine ANAEROBIC CULTURE [MREF] Routine BODY FLUID, TOTAL BILIRUBIN Routine CELL COUNT,BODY FLUID [BF] Routine CULTURE BODY FLUID + SMEAR [RM] Routine GLUCOSE,BODY FLUID [BF] Routine LACTATE DEHYDROGENASE,BODY FL [BF] Routine PROTEIN,BODY FLUID [BF] Routine 05/05/18 08:38 CULTURE URINE [RM] Routine 05/05/18 08:40 Lactulose [Chronulac] 20 gm PO Q4H 05/06/18 05:11 CBC WITH AUTO DIFF [HEME] AM COMPREHENSIVE METABOLIC PN,CMP [CHEM] AM INR,PT,PROTHROMBIN TIME [COAG] AM 05/07/18 05:11 CBC WITH AUTO DIFF [HEME] AM COMPREHENSIVE METABOLIC PN,CMP [CHEM] AM INR,PT,PROTHROMBIN TIME [COAG] AM 05/08/18 05:11 CBC WITH AUTO DIFF [HEME] AM COMPREHENSIVE METABOLIC PN,CMP [CHEM] AM INR,PT,PROTHROMBIN TIME [COAG] AM 05/09/18 05:11 CBC WITH AUTO DIFF [HEME] AM COMPREHENSIVE METABOLIC PN,CMP [CHEM] AM INR,PT,PROTHROMBIN TIME [COAG] AM 05/10/18 05:11 CBC WITH AUTO DIFF [HEME] AM COMPREHENSIVE METABOLIC PN,CMP [CHEM] AM INR,PT,PROTHROMBIN TIME [COAG] AM 05/11/18 05:11 CBC WITH AUTO DIFF [HEME] AM COMPREHENSIVE METABOLIC PN,CMP [CHEM] AM INR,PT,PROTHROMBIN TIME [COAG] AM 05/12/18 05:11 CBC WITH AUTO DIFF [HEME] AM COMPREHENSIVE METABOLIC PN,CMP [CHEM] AM INR,PT,PROTHROMBIN TIME [COAG] AM 05/13/18 05:11 CBC WITH AUTO DIFF [HEME] AM COMPREHENSIVE METABOLIC PN,CMP [CHEM] AM INR,PT,PROTHROMBIN TIME [COAG] AM 05/14/18 05:11 CBC WITH AUTO DIFF [HEME] AM COMPREHENSIVE METABOLIC PN,CMP [CHEM] AM INR,PT,PROTHROMBIN TIME [COAG] AM - Plan Plan:: #Liver Cirrhosis, stage 4 as per records #Hx HCV, in remission as per records #Coagulopathy, INR 2.01 #Hypoalbuminemia #Elevated AST #elevated Alk Phos -as per records patient with stage 4 cirrhosis and HCV in remission -CT Abdomen-pelvis reveals shrunken cirrhotic liver and moderate intra- abdominal ascites -US RUQ reveals Micronodular cirrhosis and perihepatic ascites -contacted Dr. Sheridan ID office and patient has never been seen, she last saw GI Dr. Brooks May 2017, records currently unavailable -HCV RNA ordered -MELD score 24 Plan: -f/u HCV RNA -continue monitoring and obtain records #Hepatic Encephalopathy -likely secondary to non-adherence to treatment and/or progression of liver disease -as per records home meds include Rifaximin 1 tab BID & Lactulose 1 dose TID - rifaximin unavailable at hospital -patient currently with altered mental status, states she does not take meds at home, unclear accuracy of statements -ammonia 54 -on Lactulose 10 mg Q4H Plan: -increase Lactulose to 20 mg PO Q4H, hold for over 3 bm's per day -contact patients family to bring rifaximin #Ascites s/p Diagnostic Paracentesis -Fluid appearance and analysis negative for SBP -f/u fluid cytology and culture #Thrombocytopenia -may be secondary to splenomegaly from Liver disease -no signs/symptoms of bleeding -continue to monitor #Multiple compression fractures, age indeterminate -seen on CT -continue to monitor code: DNR/DNI diet: regular DVT Prophylaxis: holding due to coagulopathy and thrombocytopenia
[2018-05-05] MEDS ORDERED: LORazepam 2 MG/ML SDV IVPUSH PRN (11:38)
[2018-05-06] MEDS: Lactulose Soln 10 GM/15 ML 15 ML UD Cup PO SCH ×6 (00:36→21:18)
[2018-05-06] MEDS: Omeprazole 20 MG Cap.CR PO SCH (07:06)
[2018-05-06] MEDS: Spironolactone 25 MG Tab PO SCH (08:07)
[2018-05-06] MEDS: Folic Acid 1 MG Tab PO SCH (08:07)
[2018-05-06] MEDS: RIFAXIMIN PO SCH (08:10)
--- NOTE | 2018-05-06 08:52 | PCM.PN ---
- General Info Date of Service: 05/06/18 Admission Dx/Problem (Free Text): Still showing signs of acute confusion, she tells me that she is in [place]. She tells me that she didn't sleep well, but is not in any pain. She is eating well. Has not had a bowel movement despite lactulose. Has not been taking rifaximin secondary to it not being available. - Review of Systems General: Reports: Other (see hpi) - Patient Data Vitals - Most Recent: Last Vital Signs Temp 37.2 C 05/06/18 08:00 Pulse 90 05/06/18 08:00 Resp 16 05/06/18 08:00 BP 107/56 L 05/06/18 08:00 Pulse Ox 90 L 05/06/18 08:00 Weight - Most Recent: 98.5 kg I&O - Last 24 Hours: Intake & Output 05/05/18 05/06/18 05/06/18 22:59 06:59 14:59 Intake Total 300 320 Output Total 900 200 Balance -600 120 Lab Results Last 24 Hours: Laboratory Results - last 24 hr 05/06/18 05/06/18 05/06/18 Range/Units 05:00 05:00 05:00 WBC 8.23 (4.0-11.0) K/uL RBC 3.47 L (4.30-5.90) M/uL Hgb 11.9 L (12.0-16.0) g/dL Hct 35.7 L (36.0-46.0) % MCV 102.9 H (80.0-98.0) fL MCH 34.3 H (27.0-32.0) pg MCHC 33.3 (31.0-37.0) g/dL RDW Std Deviation 62.0 (28.0-62.0) fl RDW Coeff of Shin 17 H (11.0-15.0) % Plt Count 86 L (150-400) K/uL MPV 9.60 (7.40-12.00) fL Neut % (Auto) 52.3 (48.0-80.0) % Lymph % (Auto) 25.6 (16.0-40.0) % [place] % (Auto) 14.5 (0.0-15.0) % Eos % (Auto) 6.9 (0.0-7.0) % Baso % (Auto) 0.7 (0.0-1.5) % Neut # (Auto) 4.3 (1.4-5.7) K/uL Lymph # (Auto) 2.1 (0.6-2.4) K/uL [place] # (Auto) 1.2 H (0.0-0.8) K/uL Eos # (Auto) 0.6 (0.0-0.7) K/uL Baso # (Auto) 0.1 (0.0-0.1) K/uL Nucleated RBC % 0.8 /100WBC Nucleated RBCs # 0 K/uL INR 2.06 Sodium 138 (136-145) mmol/L Potassium 3.9 (3.5-5.1) mmol/L Chloride 106 (98-107) mmol/L Carbon Dioxide 26.9 (21.0-32.0) mmol/L BUN 10 (7.0-18.0) mg/dL Creatinine 1.1 H (0.6-1.0) mg/dL Est Cr Clr Drug Dosing 58.97 mL/min Estimated GFR (MDRD) 51.2 ml/min Glucose 99 (74-106) mg/dL Calcium 8.3 L (8.5-10.1) mg/dL Total Bilirubin 6.0 H (0.2-1.0) mg/dL AST 66 H (15-37) IU/L ALT 36 (14-63) IU/L Alkaline Phosphatase 159 H (46-116) U/L Total Protein 6.0 L (6.4-8.2) g/dL Albumin 2.3 L (3.4-5.0) g/dL Globulin 3.7 H (2.0-3.5) g/dL Albumin/Globulin Ratio 0.6 L (1.3-2.8) Vicente Results Last 24 Hours: Microbiology 05/04/18 16:50 Gram Stain - Preliminary Peritoneal Fluid Body Fluid Culture - Preliminary NO GROWTH AFTER 1 DAY Med Orders - Current: Current Medications Folic Acid (Folic Acid) 1 mg PO DAILY [facility] Last Admin: 05/06/18 08:07 Dose: 1 mg Lactulose (Chronulac) 20 gm PO Q4H [facility] Last Admin: 05/06/18 08:38 Dose: 20 gm Lorazepam (Ativan) 1 mg IVPUSH Q6H PRN PRN Reason: Agitation Last Admin: 05/05/18 12:08 Dose: 1 mg Non-Formulary Medication (Rifaximin) 1 tab PO BID [facility] Last Admin: 05/06/18 08:10 Dose: Not Given Omeprazole (Omeprazole) 20 mg PO ACBREAKFAST [facility] Last Admin: 05/06/18 07:06 Dose: 20 mg Ondansetron HCl (Zofran) 4 mg IVPUSH Q4H PRN PRN Reason: Nausea/Vomiting Spironolactone (Aldactone) 100 mg PO DAILY [facility] Last Admin: 05/06/18 08:07 Dose: 100 mg Discontinued Medications Sodium Chloride (Normal Saline) 1,000 mls @ 999 mls/hr IV STAT ONE Stop: 05/03/18 20:22 Last Admin: 05/03/18 19:28 Dose: 999 mls/hr Ketorolac Tromethamine (Toradol) 30 mg IVPUSH ONETIME ONE Stop: 05/03/18 19:23 Last Admin: 05/03/18 19:28 Dose: 30 mg Lactulose (Chronulac) 10 gm PO TID [facility] Lactulose (Chronulac) 10 gm PO DAILY [facility] Last Admin: 05/04/18 00:48 Dose: Not Given Lactulose (Chronulac) 10 gm PO TID [facility] Last Admin: 05/04/18 06:41 Dose: 10 gm Lactulose (Chronulac) 20 gm PO TID [facility] Lactulose (Chronulac) 10 gm PO Q4H [facility] Last Admin: 05/05/18 04:58 Dose: 10 gm Ondansetron HCl (Zofran) 4 mg IVPUSH ONETIME ONE Stop: 05/03/18 19:23 Last Admin: 05/03/18 19:29 Dose: 4 mg Potassium Chloride (Klor-Con M20) 40 meq PO ONETIME ONE Stop: 05/03/18 20:55 Last Admin: 05/03/18 21:08 Dose: 40 meq Tramadol HCl (Ultram) 50 mg PO Q4H PRN PRN Reason: Pain Last Admin: 05/04/18 13:31 Dose: 50 mg - Exam Quality Assessment: Supplemental Oxygen General: Alert, Other (oriented to person, not place) HEENT: Scleral Icterus Neck: Supple Lungs: Clear to Auscultation, Normal Respiratory Effort Cardiovascular: Regular Rate, Regular Rhythm GI/Abdominal Exam: Normal Bowel Sounds, Distended Back Exam: Normal Inspection, Full Range of Motion. No: CVA Tenderness (L), CVA Tenderness (R) Extremities: Normal Inspection, Normal Range of Motion, Non-Tender, No Pedal Edema Skin: Ecchymosis Psy/Mental Status: Alert, Other (asterixis) - Problem List Review Problem List Initiated/Reviewed/Updated: Yes - My Orders Last 24 Hours: My Active Orders 05/06/18 08:34 Admission Status [Patient Status] [ADT] Routine - Plan Plan:: Assessment: #1. Hepatic encephalopathy - acute confusion, asterixis #2. Liver cirrhosis #3. Generalized Ascites #4. Thrombocytopenia #5. Hypoalbuminemia #6. Transaminitis, elevated alkaline phos, hyperbilirubinemia Plan: #1. In regards to her ongoing encephalopathy, this has been persistent likely because of her baseline but also her inability to have a bowel movement. We will get an abdominal x-ray to assess for constipation, and have ordered a mineral enema to help with bowel movement. #2. Hepatitis panel pending #3. Peritoneal fluid analysis unremarkable x2 days #4. Continue management #5. Recheck labs tomorrow AM.
--- NOTE | 2018-05-06 10:06 | CR ---
Supine abdomen Clinical history: Constipation Comparison: No recent radiographs. Ultrasound performed today prior for paracentesis Findings: The patient's abdominal girth precludes good resolution. There is air in stomach small charles l and colon throughout to the rectum. There may be an element of fecal debris in the rectosigmoid but overall the colon does not appear impacted Impression: Limited examination with nonspecific bowel gas pattern
[2018-05-06] MEDS ORDERED: Magnesium Hydroxide 400 MG/5 ML Susp 30 ML Cup PO PRN (17:56)
[2018-05-06] MEDS: Bisacodyl 10 MG Supp RECTAL SCH (18:22)
[2018-05-06] MEDS: Polyethylene Glycol 3350 Powder 17 GM Packet PO SCH ×2 (18:22→21:14)
[2018-05-06] MEDS ORDERED: XIFAXAN 550 MG PO SCH (20:20)
[2018-05-07] MEDS: Lactulose Soln 10 GM/15 ML 15 ML UD Cup PO SCH ×6 (00:10→20:32)
[2018-05-07] MEDS: Omeprazole 20 MG Cap.CR PO SCH (06:34)
[2018-05-07] MEDS: Spironolactone 25 MG Tab PO SCH (08:31)
[2018-05-07] MEDS: Bisacodyl 10 MG Supp RECTAL SCH (08:32)
[2018-05-07] MEDS: Folic Acid 1 MG Tab PO SCH (08:32)
[2018-05-07] MEDS: Polyethylene Glycol 3350 Powder 17 GM Packet PO SCH ×3 (08:32→20:36)
[2018-05-07] MEDS: XIFAXAN 550 MG PO SCH ×2 (08:50→20:35)
--- NOTE | 2018-05-07 08:55 | PCM.PN ---
- General Info Date of Service: 05/07/18 Subjective Update: Confusion appears to be getting better. She was able to answer questions more appropriately. Had a bowel movement last night. Still considerable amount of ongoing asterixis. Still requiring 3L o2 via NC - Review of Systems General: Reports: No Symptoms HEENT: Reports: No Symptoms Pulmonary: Reports: No Symptoms Cardiovascular: Reports: No Symptoms Gastrointestinal: Reports: Constipation Genitourinary: Reports: No Symptoms Musculoskeletal: Reports: No Symptoms Skin: Reports: No Symptoms Neurological: Reports: No Symptoms Psychiatric: Reports: No Symptoms - Patient Data Vitals - Most Recent: Last Vital Signs Temp 37.3 C 05/07/18 07:47 Pulse 74 05/07/18 07:47 Resp 12 05/07/18 07:47 BP 114/56 L 05/07/18 07:47 Pulse Ox 92 L 05/07/18 07:47 Weight - Most Recent: 101 kg I&O - Last 24 Hours: Intake & Output 05/06/18 05/07/18 05/07/18 22:59 06:59 14:59 Intake Total 440 690 Output Total 450 100 Balance -10 590 Lab Results Last 24 Hours: Laboratory Results - last 24 hr 05/04/18 05/07/18 05/07/18 Range/Units 16:50 05:05 05:05 WBC 8.88 (4.0-11.0) K/uL RBC 3.41 L (4.30-5.90) M/uL Hgb 12.0 (12.0-16.0) g/dL Hct 35.0 L (36.0-46.0) % MCV 102.6 H (80.0-98.0) fL MCH 35.2 H (27.0-32.0) pg MCHC 34.3 (31.0-37.0) g/dL RDW Std Deviation 61.9 (28.0-62.0) fl RDW Coeff of Shin 17 H (11.0-15.0) % Plt Count 91 L (150-400) K/uL MPV 9.80 (7.40-12.00) fL Neut % (Auto) 50.5 (48.0-80.0) % Lymph % (Auto) 26.4 (16.0-40.0) % [place] % (Auto) 15.2 H (0.0-15.0) % Eos % (Auto) 6.8 (0.0-7.0) % Baso % (Auto) 1.1 (0.0-1.5) % Neut # (Auto) 4.5 (1.4-5.7) K/uL Lymph # (Auto) 2.3 (0.6-2.4) K/uL [place] # (Auto) 1.4 H (0.0-0.8) K/uL Eos # (Auto) 0.6 (0.0-0.7) K/uL Baso # (Auto) 0.1 (0.0-0.1) K/uL Nucleated RBC % 0.0 /100WBC Nucleated RBCs # 0 K/uL INR 2.13 Sodium (136-145) mmol/L Potassium (3.5-5.1) mmol/L Chloride (98-107) mmol/L Carbon Dioxide (21.0-32.0) mmol/L BUN (7.0-18.0) mg/dL Creatinine (0.6-1.0) mg/dL Est Cr Clr Drug Dosing mL/min Estimated GFR (MDRD) ml/min Glucose (74-106) mg/dL Calcium (8.5-10.1) mg/dL Total Bilirubin (0.2-1.0) mg/dL AST (15-37) IU/L ALT (14-63) IU/L Alkaline Phosphatase (46-116) U/L Total Protein (6.4-8.2) g/dL Albumin (3.4-5.0) g/dL Globulin (2.0-3.5) g/dL Albumin/Globulin Ratio (1.3-2.8) Fluid Source Fluid Fluid Tot Bilirubin 0.2 mg/dL 05/07/18 Range/Units 05:05 WBC (4.0-11.0) K/uL RBC (4.30-5.90) M/uL Hgb (12.0-16.0) g/dL Hct (36.0-46.0) % MCV (80.0-98.0) fL MCH (27.0-32.0) pg MCHC (31.0-37.0) g/dL RDW Std Deviation (28.0-62.0) fl RDW Coeff of Shin (11.0-15.0) % Plt Count (150-400) K/uL MPV (7.40-12.00) fL Neut % (Auto) (48.0-80.0) % Lymph % (Auto) (16.0-40.0) % [place] % (Auto) (0.0-15.0) % Eos % (Auto) (0.0-7.0) % Baso % (Auto) (0.0-1.5) % Neut # (Auto) (1.4-5.7) K/uL Lymph # (Auto) (0.6-2.4) K/uL [place] # (Auto) (0.0-0.8) K/uL Eos # (Auto) (0.0-0.7) K/uL Baso # (Auto) (0.0-0.1) K/uL Nucleated RBC % /100WBC Nucleated RBCs # K/uL INR Sodium 139 (136-145) mmol/L Potassium 3.9 (3.5-5.1) mmol/L Chloride 104 (98-107) mmol/L Carbon Dioxide 28.4 (21.0-32.0) mmol/L BUN 8 (7.0-18.0) mg/dL Creatinine 1.1 H (0.6-1.0) mg/dL Est Cr Clr Drug Dosing 58.97 mL/min Estimated GFR (MDRD) 51.2 ml/min Glucose 97 (74-106) mg/dL Calcium 8.1 L (8.5-10.1) mg/dL Total Bilirubin 6.1 H (0.2-1.0) mg/dL AST 67 H (15-37) IU/L ALT 39 (14-63) IU/L Alkaline Phosphatase 172 H (46-116) U/L Total Protein 6.0 L (6.4-8.2) g/dL Albumin 2.3 L (3.4-5.0) g/dL Globulin 3.7 H (2.0-3.5) g/dL Albumin/Globulin Ratio 0.6 L (1.3-2.8) Fluid Source Fluid Tot Bilirubin mg/dL [facility]ente Results Last 24 Hours: Microbiology 05/04/18 16:50 Gram Stain - Final Peritoneal Fluid Body Fluid Culture - Final NO GROWTH AFTER 3 DAYS Anaerobic Culture - Final NO ANAEROBES ISOLATED 05/04/18 16:55 Urine Culture - Final Urine, Voided No Growth Med Orders - Current: Current Medications Bisacodyl (Dulcolax) 10 mg RECTAL DAILY [facility] Last Admin: 05/07/18 08:32 Dose: 10 mg Folic Acid (Folic Acid) 1 mg PO DAILY [facility] Last Admin: 05/07/18 08:32 Dose: 1 mg Lactulose (Chronulac) 20 gm PO Q4H [facility] Last Admin: 05/07/18 08:31 Dose: 20 gm Lorazepam (Ativan) 1 mg IVPUSH Q6H PRN PRN Reason: Agitation Last Admin: 05/05/18 12:08 Dose: 1 mg Magnesium Hydroxide (Milk Of Magnesia) 30 ml PO Q6H PRN PRN Reason: Constipation Last Admin: 05/06/18 18:26 Dose: 30 ml Omeprazole (Omeprazole) 20 mg PO ACBREAKFAST [facility] Last Admin: 05/07/18 06:34 Dose: 20 mg Ondansetron HCl (Zofran) 4 mg IVPUSH Q4H PRN PRN Reason: Nausea/Vomiting Xifaxan 550 Mg 1 each PO BID [facility] Polyethylene Glycol (Miralax) 17 gm PO BID [facility] Last Admin: 05/07/18 08:32 Dose: 17 gm Spironolactone (Aldactone) 100 mg PO DAILY [facility] Last Admin: 05/07/18 08:31 Dose: 100 mg Discontinued Medications Sodium Chloride (Normal Saline) 1,000 mls @ 999 mls/hr IV STAT ONE Stop: 05/03/18 20:22 Last Admin: 05/03/18 19:28 Dose: 999 mls/hr Ketorolac Tromethamine (Toradol) 30 mg IVPUSH ONETIME ONE Stop: 05/03/18 19:23 Last Admin: 05/03/18 19:28 Dose: 30 mg Lactulose (Chronulac) 10 gm PO TID [facility] Lactulose (Chronulac) 10 gm PO DAILY [facility] Last Admin: 05/04/18 00:48 Dose: Not Given Lactulose (Chronulac) 10 gm PO TID [facility] Last Admin: 05/04/18 06:41 Dose: 10 gm Lactulose (Chronulac) 20 gm PO TID [facility] Lactulose (Chronulac) 10 gm PO Q4H [facility] Last Admin: 05/05/18 04:58 Dose: 10 gm Non-Formulary Medication (Rifaximin) 1 tab PO BID [facility] Last Admin: 05/06/18 08:10 Dose: Not Given Xifaxan 550 Mg Own (Med) 0 tab PO BID [facility] Last Admin: 05/06/18 21:18 Dose: 1 tab Ondansetron HCl (Zofran) 4 mg IVPUSH ONETIME ONE Stop: 05/03/18 19:23 Last Admin: 05/03/18 19:29 Dose: 4 mg Potassium Chloride (Klor-Con M20) 40 meq PO ONETIME ONE Stop: 05/03/18 20:55 Last Admin: 05/03/18 21:08 Dose: 40 meq Tramadol HCl (Ultram) 50 mg PO Q4H PRN PRN Reason: Pain Last Admin: 05/04/18 13:31 Dose: 50 mg - Exam Quality Assessment: Supplemental Oxygen General: Alert, Oriented, Cooperative HEENT: Pupils Equal, Pupils Reactive Neck: Supple Lungs: Clear to Auscultation, Normal Respiratory Effort Cardiovascular: Regular Rate, Regular Rhythm GI/Abdominal Exam: Soft, Non-Tender, Distended (ascites) Back Exam: Normal Inspection, Full Range of Motion Extremities: Normal Inspection, Normal Range of Motion, Non-Tender, No Pedal Edema, Normal Capillary Refill Skin: Warm, Dry, Intact Psy/Mental Status: Alert, Normal Affect, Normal Mood - Problem List Review Problem List Initiated/Reviewed/Updated: Yes - My Orders Last 24 Hours: My Active Orders 05/06/18 08:34 Admission Status [Patient Status] [ADT] Routine 05/06/18 17:56 Magnesium Hydroxide [Milk of Magnesia] 30 ml PO Q6H PRN 05/06/18 18:00 Bisacodyl [Dulcolax] 10 mg RECTAL DAILY Polyethylene Glycol 3350 [MiraLAX] 17 gm PO BID - Plan Plan:: Assessment: #1. Hepatic encephalopathy - acute confusion, asterixis improving #2. Acute Hypoxic respiratory failure #3. Generalized Ascites #4. Thrombocytopenia #5. Hypoalbuminemia #6. 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 Constipation Plan: #1. Begin 40mg IV Lasix daily #2. Wean off oxygen as tolerated #3. Speak to family regarding possible home health or hospice arrangements given patients prognosis. #4. Continue bowel regimen for constipation #5. Discharge 1-2 days.
[2018-05-07] MEDS: Furosemide 40 MG/4 ML VIAL IVPUSH SCH (09:24)
[2018-05-08] MEDS: Lactulose Soln 10 GM/15 ML 15 ML UD Cup PO SCH ×5 (00:21→17:05)
[2018-05-08] MEDS: Omeprazole 20 MG Cap.CR PO SCH (06:29)
[2018-05-08] MEDS ORDERED: Ketorolac 30 MG/ML SDV IM ONE (07:52)
[2018-05-08] MEDS ORDERED: Ketorolac 30 MG/ML SDV IVPUSH ONE (07:59)
[2018-05-08] MEDS ORDERED: Potassium Chloride 20 MEQ Tab.ER PO SCH (09:00)
[2018-05-08] MEDS: Folic Acid 1 MG Tab PO SCH (09:28)
[2018-05-08] MEDS: Furosemide 40 MG/4 ML VIAL IVPUSH SCH (09:56)
[2018-05-08] MEDS: Spironolactone 25 MG Tab PO SCH (10:18)
[2018-05-08] MEDS: Bisacodyl 10 MG Supp RECTAL SCH (10:19)
[2018-05-08] MEDS: Polyethylene Glycol 3350 Powder 17 GM Packet PO SCH (10:19)
[2018-05-08] MEDS: XIFAXAN 550 MG PO SCH (10:22)
--- NOTE | 2018-05-08 12:22 | PCM.DCSUM1 ---
<Norberto Calderon - Last Filed: 05/08/18 12:27> Discharge Summary - Hospital Course Free Text/Narrative:: Admission date: 05/04/2018 Discharge date: 05/08/2018 Admission diagnosis: #1. Hepatic encephalopathy #2. Liver cirrhosis with ascites #3. History of hepatitis C, in remission as per records #4. Elevated AST, Alk phos #5. Hypoalbuminemia #6. Thrombocytopenia #7. Abdominal pain secondary to #2 #8. Constipation Discharge diagnosis: #1. Hepatic encephalopathy - improved #2. Liver cirrhosis stage 4, with ascites MELD Score 26 #3. History of hepatitis C, in remission as per records #4. Elevated AST, Alk phos #5. Hypoalbuminemia #6. Thrombocytopenia #7. Abdominal pain secondary to #2 #8. Constipation- improved #9. Elevated INR Hospital course: This is a 57F with the above mentioned history that presented on 05/04/18 with her secondary to altered mental status. CT abdomen showed a shrunken cirrhotic liver with moderate ascites. A diagnostic paracentesis was completed that yielded only 30mL. She was observed, given lactulose and given lasix for diuresis. She did go through significant constipation despite multiple laxatives , but her mental status did improve considerably after having a bowel movement. Given her prognosis, I did have her meet with home health/hospice nurse prior to discharge. I went through the prognosis at this time. At the time of discharge, the family has not agreed to hospice, but the nurse will visit with them at their home on Friday05/11/18 to address further care goal and plans. She does have ambulatory dysfunction requiring help going to the bathroom, which her states that he can provide. She will continue on her home medications with no changes. I have added a short course of Tramadol to help with the pain that she experiences, but am concerned about ongoing constipation worsening her encephalopathy, so don't want to be very aggressive with this or continue with skilled nursing opioids. She is to f/u with her PCP - Discharge Data Discharge Date: 05/08/18 Discharge Disposition: Home, Self-Care 01 Condition: Good - Patient Summary/Data Consults: Consultations 05/08/18 09:55 Consult to Hospice [CONS] Routine - Patient Instructions Diet: Usual Diet as Tolerated Activity: As Tolerated Driving: Do Not Drive Showering/Bathing: May Shower Notify Provider of: Fever, Increased Pain, Swelling and Redness, Drainage, Nausea and/or Vomiting - Discharge Plan Prescriptions/Med Rec: traMADol [Ultram] 50 mg PO Q8H PRN 7 Days #21 tablet PRN Reason: Pain Home Medications: Home Meds Amitriptyline [Elavil] 1 tab PO DAILY 01/12/17 [History] Eszopiclone 1 tab PO DAILY 01/12/17 [History] Folic Acid 1 tab PO DAILY 01/12/17 [History] Furosemide 1 tab PO DAILY 01/12/17 [History] Lactulose [Chronulac] 1 dose PO TID 01/12/17 [History] Omeprazole 1 cap PO DAILY 01/12/17 [History] Orphenadrine [Norflex] 1 tab PO BID 01/12/17 [History] Potassium Chloride 1 tab PO DAILY 01/12/17 [History] Rifaximin [Xifaxan] 1 tab PO BID 01/12/17 [History] Spironolactone [Aldactone] 1 tab PO DAILY 01/12/17 [History] hydrOXYzine HCl [Atarax] 1 tab PO DAILY 01/12/17 [History] Benzonatate 100 mg 05/03/18 [History] Albuterol [Ventolin HFA] 90 mcg INH Q4HR PRN 05/04/18 [History] traMADol [Ultram] 50 mg PO Q8H PRN 7 Days #21 tablet 05/08/18 [Rx] Patient Handouts: Alcoholic Liver Disease, [id number], Tramadol tablets, Ascites Referrals: Nikolay Holloway MD [Physician] - 05/25/18 10:30 am - Patient Data Vitals - Most Recent: Last Vital Signs Temp 37.1 C 05/08/18 07:10 Pulse 94 05/08/18 07:10 Resp 19 05/08/18 07:15 BP 116/76 05/08/18 09:38 Pulse Ox 89 L 05/08/18 09:38 Weight - Most Recent: 99 kg I&O - Last 24 hours: Intake & Output 05/07/18 05/08/18 05/08/18 22:59 06:59 14:59 Intake Total 1050 800 Output Total 900 650 Balance 150 150 Lab Results - Last 24 hrs: Laboratory Results - last 24 hr 05/04/18 05/08/18 05/08/18 Range/Units 11:12 05:40 05:40 WBC 8.46 (4.0-11.0) K/uL RBC 3.54 L (4.30-5.90) M/uL Hgb 12.3 (12.0-16.0) g/dL Hct 35.9 L (36.0-46.0) % MCV 101.4 H (80.0-98.0) fL MCH 34.7 H (27.0-32.0) pg MCHC 34.3 (31.0-37.0) g/dL RDW Std Deviation 62.5 H (28.0-62.0) fl RDW Coeff of Shin 17 H (11.0-15.0) % Plt Count 95 L (150-400) K/uL MPV 10.10 (7.40-12.00) fL Add Manual Diff YES Neutrophils % (Manual) 64 (48.0-80.0) % Lymphocytes % (Manual) 17 (16.0-40.0) % Monocytes % (Manual) 12 (0.0-15.0) % Eosinophils % (Manual) 7 (0.0-7.0) % Nucleated RBC % 0.3 /100WBC Absolute Seg Neuts 5.4 (1.4-5.7) Band Neutrophils # 1.4 Lymphocytes # (Manual) 1.4 (0.6-2.4) Monocytes # (Manual) 1.0 H (0.0-0.8) Eosinophils # (Manual) 0.6 (0.0-0.7) Nucleated RBCs # 0 K/uL INR 2.29 Sodium (136-145) mmol/L Potassium (3.5-5.1) mmol/L Chloride (98-107) mmol/L Carbon Dioxide (21.0-32.0) mmol/L BUN (7.0-18.0) mg/dL Creatinine (0.6-1.0) mg/dL Est Cr Clr Drug Dosing mL/min Estimated GFR (MDRD) ml/min Glucose (74-106) mg/dL Calcium (8.5-10.1) mg/dL Total Bilirubin (0.2-1.0) mg/dL AST (15-37) IU/L ALT (14-63) IU/L Alkaline Phosphatase (46-116) U/L Total Protein (6.4-8.2) g/dL Albumin (3.4-5.0) g/dL Globulin (2.0-3.5) g/dL Albumin/Globulin Ratio (1.3-2.8) Hep B DNA Test Info Comment HCV RNA Quant (PCR) SEE BELOW IU/mL 05/08/18 Range/Units 05:40 WBC (4.0-11.0) K/uL RBC (4.30-5.90) M/uL Hgb (12.0-16.0) g/dL Hct (36.0-46.0) % MCV (80.0-98.0) fL MCH (27.0-32.0) pg MCHC (31.0-37.0) g/dL RDW Std Deviation (28.0-62.0) fl RDW Coeff of Shin (11.0-15.0) % Plt Count (150-400) K/uL MPV (7.40-12.00) fL Add Manual Diff Neutrophils % (Manual) (48.0-80.0) % Lymphocytes % (Manual) (16.0-40.0) % Monocytes % (Manual) (0.0-15.0) % Eosinophils % (Manual) (0.0-7.0) % Nucleated RBC % /100WBC Absolute Seg Neuts (1.4-5.7) Band Neutrophils # Lymphocytes # (Manual) (0.6-2.4) Monocytes # (Manual) (0.0-0.8) Eosinophils # (Manual) (0.0-0.7) Nucleated RBCs # K/uL INR Sodium 139 (136-145) mmol/L Potassium 3.3 L (3.5-5.1) mmol/L Chloride 103 (98-107) mmol/L Carbon Dioxide 28.8 (21.0-32.0) mmol/L BUN 8 (7.0-18.0) mg/dL Creatinine 1.0 (0.6-1.0) mg/dL Est Cr Clr Drug Dosing 64.87 mL/min Estimated GFR (MDRD) 57.1 ml/min Glucose 84 (74-106) mg/dL Calcium 8.1 L (8.5-10.1) mg/dL Total Bilirubin 7.3 H (0.2-1.0) mg/dL AST 62 H (15-37) IU/L ALT 38 (14-63) IU/L Alkaline Phosphatase 169 H (46-116) U/L Total Protein 6.0 L (6.4-8.2) g/dL Albumin 2.4 L (3.4-5.0) g/dL Globulin 3.6 H (2.0-3.5) g/dL Albumin/Globulin Ratio 0.7 L (1.3-2.8) Hep B DNA Test Info HCV RNA Quant (PCR) IU/mL [facility] Results - Last 24 hrs: Microbiology 05/04/18 16:50 Gram Stain - Final Peritoneal Fluid Body Fluid Culture - Final NO GROWTH AFTER 3 DAYS Anaerobic Culture - Final NO ANAEROBES ISOLATED 05/04/18 16:55 Urine Culture - Final Urine, Voided No Growth Med Orders - Current: Current Medications Bisacodyl (Dulcolax) 10 mg RECTAL DAILY [facility] Last Admin: 05/08/18 10:19 Dose: Not Given Folic Acid (Folic Acid) 1 mg PO DAILY [facility] Last Admin: 05/08/18 09:28 Dose: 1 mg Furosemide (Lasix) 40 mg IVPUSH DAILY [facility] Last Admin: 05/08/18 09:56 Dose: Not Given Lactulose (Chronulac) 20 gm PO Q4H [facility] Last Admin: 05/08/18 10:19 Dose: Not Given Lorazepam (Ativan) 1 mg IVPUSH Q6H PRN PRN Reason: Agitation Last Admin: 05/05/18 12:08 Dose: 1 mg Magnesium Hydroxide (Milk Of Magnesia) 30 ml PO Q6H PRN PRN Reason: Constipation Last Admin: 05/06/18 18:26 Dose: 30 ml Omeprazole (Omeprazole) 20 mg PO ACBREAKFAST [facility] Last Admin: 05/08/18 06:29 Dose: 20 mg Ondansetron HCl (Zofran) 4 mg IVPUSH Q4H PRN PRN Reason: Nausea/Vomiting Last Admin: 05/07/18 14:03 Dose: 4 mg Xifaxan 550 Mg 1 each PO BID [facility] Last Admin: 05/08/18 10:22 Dose: 1 each Polyethylene Glycol (Miralax) 17 gm PO BID [facility] Last Admin: 05/08/18 10:19 Dose: Not Given Potassium Chloride (Klor-Con M20) 20 meq PO DAILY [facility] Last Admin: 05/08/18 09:29 Dose: 20 meq Spironolactone (Aldactone) 100 mg PO DAILY [facility] Last Admin: 05/08/18 10:18 Dose: 100 mg Discontinued Medications Sodium Chloride (Normal Saline) 1,000 mls @ 999 mls/hr IV STAT ONE Stop: 05/03/18 20:22 Last Admin: 05/03/18 19:28 Dose: 999 mls/hr Ketorolac Tromethamine (Toradol) 30 mg IVPUSH ONETIME ONE Stop: 05/03/18 19:23 Last Admin: 05/03/18 19:28 Dose: 30 mg Ketorolac Tromethamine (Toradol) 30 mg IM ONETIME ONE Stop: 05/08/18 07:53 Last Admin: 05/08/18 09:27 Dose: Not Given Ketorolac Tromethamine (Toradol) 30 mg IVPUSH ONETIME ONE Stop: 05/08/18 08:00 Last Admin: 05/08/18 08:48 Dose: 30 mg Lactulose (Chronulac) 10 gm PO TID [facility] Lactulose (Chronulac) 10 gm PO DAILY [facility] Last Admin: 05/04/18 00:48 Dose: Not Given Lactulose (Chronulac) 10 gm PO TID [facility] Last Admin: 05/04/18 06:41 Dose: 10 gm Lactulose (Chronulac) 20 gm PO TID [facility] Lactulose (Chronulac) 10 gm PO Q4H [facility] Last Admin: 05/05/18 04:58 Dose: 10 gm Non-Formulary Medication (Rifaximin) 1 tab PO BID [facility] Last Admin: 05/06/18 08:10 Dose: Not Given Xifaxan 550 Mg Own (Med) 0 tab PO BID [facility] Last Admin: 05/06/18 21:18 Dose: 1 tab Ondansetron HCl (Zofran) 4 mg IVPUSH ONETIME ONE Stop: 05/03/18 19:23 Last Admin: 05/03/18 19:29 Dose: 4 mg Potassium Chloride (Klor-Con M20) 40 meq PO ONETIME ONE Stop: 05/03/18 20:55 Last Admin: 05/03/18 21:08 Dose: 40 meq Tramadol HCl (Ultram) 50 mg PO Q4H PRN PRN Reason: Pain Last Admin: 05/04/18 13:31 Dose: 50 mg <Dirk Cook - Last Filed: 05/13/18 20:34> Discharge Summary - Patient Summary/Data Consults: Consultations 05/08/18 09:55 Consult to Hospice [CONS] Routine - Patient Data Vitals - Most Recent: Last Vital Signs Temp 36.9 C 05/08/18 16:00 Pulse 92 05/08/18 16:00 Resp 18 05/08/18 16:00 BP 112/52 L 05/08/18 16:00 Pulse Ox 90 L 05/08/18 16:00 Med Orders - Current: Current Medications Discontinued Medications Bisacodyl (Dulcolax) 10 mg RECTAL DAILY [facility] Last Admin: 05/08/18 10:19 Dose: Not Given Folic Acid (Folic Acid) 1 mg PO DAILY [facility] Last Admin: 05/08/18 09:28 Dose: 1 mg Furosemide (Lasix) 40 mg IVPUSH DAILY [facility] Last Admin: 05/08/18 09:56 Dose: Not Given Sodium Chloride (Normal Saline) 1,000 mls @ 999 mls/hr IV STAT ONE Stop: 05/03/18 20:22 Last Admin: 05/03/18 19:28 Dose: 999 mls/hr Ketorolac Tromethamine (Toradol) 30 mg IVPUSH ONETIME ONE Stop: 05/03/18 19:23 Last Admin: 05/03/18 19:28 Dose: 30 mg Ketorolac Tromethamine (Toradol) 30 mg IM ONETIME ONE Stop: 05/08/18 07:53 Last Admin: 05/08/18 09:27 Dose: Not Given Ketorolac Tromethamine (Toradol) 30 mg IVPUSH ONETIME ONE Stop: 05/08/18 08:00 Last Admin: 05/08/18 08:48 Dose: 30 mg Lactulose (Chronulac) 10 gm PO TID [facility] Lactulose (Chronulac) 10 gm PO DAILY [facility] Last Admin: 05/04/18 00:48 Dose: Not Given Lactulose (Chronulac) 10 gm PO TID [facility] Last Admin: 05/04/18 06:41 Dose: 10 gm Lactulose (Chronulac) 20 gm PO TID [facility] Lactulose (Chronulac) 10 gm PO Q4H [facility] Last Admin: 05/05/18 04:58 Dose: 10 gm Lactulose (Chronulac) 20 gm PO Q4H [facility] Last Admin: 05/08/18 17:05 Dose: 20 gm Lorazepam (Ativan) 1 mg IVPUSH Q6H PRN PRN Reason: Agitation Last Admin: 05/05/18 12:08 Dose: 1 mg Magnesium Hydroxide (Milk Of Magnesia) 30 ml PO Q6H PRN PRN Reason: Constipation Last Admin: 05/06/18 18:26 Dose: 30 ml Non-Formulary Medication (Rifaximin) 1 tab PO BID [facility] Last Admin: 05/06/18 08:10 Dose: Not Given Xifaxan 550 Mg Own (Med) 0 tab PO BID [facility] Last Admin: 05/06/18 21:18 Dose: 1 tab Omeprazole (Omeprazole) 20 mg PO ACBREAKFAST [facility] Last Admin: 05/08/18 06:29 Dose: 20 mg Ondansetron HCl (Zofran) 4 mg IVPUSH ONETIME ONE Stop: 05/03/18 19:23 Last Admin: 05/03/18 19:29 Dose: 4 mg Ondansetron HCl (Zofran) 4 mg IVPUSH Q4H PRN PRN Reason: Nausea/Vomiting Last Admin: 05/07/18 14:03 Dose: 4 mg Xifaxan 550 Mg 1 each PO BID [facility] Last Admin: 05/08/18 10:22 Dose: 1 each Polyethylene Glycol (Miralax) 17 gm PO BID [facility] Last Admin: 05/08/18 10:19 Dose: Not Given Potassium Chloride (Klor-Con M20) 40 meq PO ONETIME ONE Stop: 05/03/18 20:55 Last Admin: 05/03/18 21:08 Dose: 40 meq Potassium Chloride (Klor-Con M20) 20 meq PO DAILY [facility] Last Admin: 05/08/18 09:29 Dose: 20 meq Spironolactone (Aldactone) 100 mg PO DAILY [facility] Last Admin: 05/08/18 10:18 Dose: 100 mg Tramadol HCl (Ultram) 50 mg PO Q4H PRN PRN Reason: Pain Last Admin: 05/04/18 13:31 Dose: 50 mg Tramadol HCl (Ultram) 50 mg PO ONETIME ONE Stop: 05/08/18 18:01 Last Admin: 05/08/18 18:07 Dose: 50 mg - Free Text/Narrative Note: I have examined the patient. I have discussed treatment plan with the resident. I agree with the assessment and plan outlined in the following resident's note.
[2018-05-08 17:36] VITALS: BP 112/52
[2018-05-08] MEDS ORDERED: traMADol 50 MG Tab PO ONE (18:00)
== END 2018-05-08 18:35 | disposition home or self-care (01) | DRG 442 ==
LOC: MW.ED 19:17 → MW.MS 21:21 → OBSVTOIN 05-06 08:34
PROVIDERS: ADMIT Internal Medicine; ATTEND Internal Medicine
PROC: 0W9G3ZZ Drainage of Peritoneal Cavity, Percutaneous Approach (ICD-10-PCS; principal; 2018-05-04)
DX: K72.90 Hepatic failure, unspecified without coma (principal); S37.009A Unspecified injury of unspecified kidney, initial encounter; M48.50XA Collapsed vertebra, not elsewhere classified, site unspecified, initial encounter for fracture; K70.31 Alcoholic cirrhosis of liver with ascites; K74.60 Unspecified cirrhosis of liver; Z86.19 Personal history of other infectious and parasitic diseases; R79.89 Other specified abnormal findings of blood chemistry; Z66 Do not resuscitate; E88.09 Other disorders of plasma-protein metabolism, not elsewhere classified; D69.6 Thrombocytopenia, unspecified; K59.00 Constipation, unspecified; R79.1 Abnormal coagulation profile; E87.6 Hypokalemia; F32.9 Major depressive disorder, single episode, unspecified; R41.82 Altered mental status, unspecified; R74.0 Nonspecific elevation of levels of transaminase and lactic acid dehydrogenase [LDH]; Z88.8 Allergy status to other drugs, medicaments and biological substances; Z79.899 Other long term (current) drug therapy; Z87.891 Personal history of nicotine dependence
CPT/HCPCS: 36415; 49083; 51701; 74018; 74018-26; 74176; 74176-26; 76705; 76705-26; 80053; 81001; 82140; 82150; 82945; 83615; 83690; 83735; 84157; 85025; 85027; 85610; 87070; 87075; 87086; 87205; 87522; 88104; 89050; 96361; 96374; 96375; 99284; 99285-25; A9270-GY; G0378; J1885; J1940; J2060; J2405; J7040